=== PATIENT | male | born 2000 | race Hispanic/Latino ===

== ENCOUNTER 2024-03-22 14:36 | Emergency (ER) | payer OTHER ==
[2024-03-22] MEDS ORDERED: Lidocaine 1% PF 5 ML VIAL ONE (16:28)
[2024-03-22] MEDS ORDERED: Boostrix 0.5 ML (Tdap) VIAL (>/=7 yrs of age) ONE (16:40)
== END 2024-03-22 17:00 | disposition home or self-care (01) ==
LOC: ERS 14:36
DX: S61.142A Puncture wound with foreign body of left thumb with damage to nail, initial encounter (principal); W29.4XXA Contact with nail gun, initial encounter; Y93.89 Activity, other specified; Y92.69 Other specified industrial and construction area as the place of occurrence of the external cause; Z23 Encounter for immunization; Z75.8 Other problems related to medical facilities and other health care
CPT/HCPCS: 90471; 90715